=== PATIENT | male | born 1985 | race Two or more races ===

== ENCOUNTER 2024-11-03 00:07 | Emergency (ER) | payer SELFPAY ==
[2024-11-03] MEDS: Acetaminophen 325 MG Tab PO ONE (00:51)
== END 2024-11-03 02:20 | disposition home or self-care (01) ==
LOC: MW.ED 00:07
DX: U07.1 COVID-19 (principal); F17.210 Nicotine dependence, cigarettes, uncomplicated; Z75.8 Other problems related to medical facilities and other health care
CPT/HCPCS: 87428; 87651; 99284; A9270